=== PATIENT | male | born 1970 | race African-American/Black ===

== ENCOUNTER → 2017-09-27 | Emergency (ER) | payer SELFPAY ==
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
== END | disposition left against medical advice (07) ==
LOC: EDBD 17:08 → EMR 17:11
DX: R41.82 Altered mental status, unspecified (principal); Z53.21 Procedure and treatment not carried out due to patient leaving prior to being seen by health care provider
CPT/HCPCS: 99281